=== PATIENT | male | born 1955 | race Caucasian/White ===

== ENCOUNTER 2020-06-17 07:48 | Outpatient (CLI) | payer MEDICARE, OTHER, SELFPAY ==
--- NOTE | ~2020-06-17 | CT_ITS ---
EXAMINATION: CT abdomen pelvis wo con DATE: 06/17/2020 08:12 INDICATION: Renal stones TECHNIQUE: Computed tomography (CT) of the abdomen and pelvis was performed without intravenous contr ast. Automated exposure control and iterative reconstruction technique were employed. Exam dose: 128 5.61 mGy-cm total exam DLP. COMPARISON: 10/03/[address] abdomen pelvis FINDINGS: Emphysematous changes are noted in the lower lung zones. Bilateral lower lung discoid atele ctasis and/or scarring. Normal heart size. No pericardial or pleural effusion. Numerous gallstones are noted. No gallbladder wall thickening or pericholecystic fluid or fat strandi ng. No hepatic, splenic, pancreatic, adrenal space-occupying mass lesion is evident. No bile duct or panc reatic duct dilatation. There is mild chronic nonspecific fat stranding in the upper abdominal mesentery, also present on 09/15. No right renal space-occupying mass lesion or right urinary tract calculus or hydroureteronephrosis. There are several lower pole nonobstructing left renal calculi, the largest measuring up to approxima tely 5 mm dimension. No left ureteral calculus or hydroureteronephrosis. Possible 10 mm left lower po le renal cyst. Evaluation for renal masses is limited on this noncontrast examination. Moderately large sliding hiatal hernia is noted. No evidence of appendicitis. No bowel obstruction, bowel wall thickening, pneumatosis or intraperiton eal free air. There is prostate enlargement and calcification. The urinary bladder is unremarkable. Left inguinal f at-containing hernia. Moderately prominent fat-containing umbilical hernia, measuring up to 2.7 cm depth, 3.1 cm width. Chronic L1 fracture deformity, present on 10/03/2016. IMPRESSION: Cholelithiasis Nonobstructive left nephrolithiasis Possible 10 mm lower pole left renal cyst Moderately large hiatal hernia Prostate enlargement and calcification Left inguinal and umbilical fat-containing hernias Reviewed, dictated and finalized at [facility]. Reviewed, dictated and finalized at [facility].
== END 2020-06-17 07:49 | disposition home or self-care (01) ==
PROVIDERS: PCP Internal Medicine; Visit Provider Nurse Practitioner
DX: N20.0 Calculus of kidney (principal); K80.20 Calculus of gallbladder without cholecystitis without obstruction; K44.9 Diaphragmatic hernia without obstruction or gangrene; N40.0 Benign prostatic hyperplasia without lower urinary tract symptoms; K40.90 Unilateral inguinal hernia, without obstruction or gangrene, not specified as recurrent; K42.9 Umbilical hernia without obstruction or gangrene
CPT/HCPCS: 74176

== ENCOUNTER → 2020-06-24 00:46 | Outpatient (CLI) | payer MEDICARE, OTHER, SELFPAY ==
[2020-06-24 18:53] LABS: SARS-CoV-2 RNA PCR Negative
== END ==
PROVIDERS: PCP Internal Medicine; Visit Provider Internal Medicine Gastroenterology
DX: Z01.812 Encounter for preprocedural laboratory examination (principal); Z20.822 Contact with and (suspected) exposure to COVID-19
CPT/HCPCS: C9803; U0003; U0005

== ENCOUNTER 2020-06-28 02:01 | Day surgery (SDC) | payer MEDICARE, OTHER, SELFPAY ==
[2020-06-15 14:22] VITALS: BMI 36.4
[2020-06-28 09:15] VITALS: BP 135/79; PULSE 69; RESP 18; TEMP 36.6; O2SAT 95; BMI 36.9
[2020-06-28] MEDS: LACTATED RINGERS 1,000 ML 150 ML IV CONT (09:33)
--- NOTE | 2020-06-28 09:51 | WPDANESEPPF ---
Anes - Initial Pre Proc Eval Procedure: Operation Date: 06/28/20 10:30 Proposed Procedures p Screening Colonoscopy - Michael Rodriguez MD Date/Time: 06/28/20 09:51 Surgeon: Michael Rodriguez MD Pre Op Diagnosis: neoplasm Screening Patient Data Age: 65 Gender: M Height: 6 ft Weight: 123.6 kg Last Vital Signs Temp 97.8 F 06/28/20 09:15 Pulse 69 06/28/20 09:15 Resp 18 06/28/20 09:15 BP 135/79 06/28/20 09:15 Pulse Ox 95 06/28/20 09:15 Allergies Allergy/AdvReac Type Severity Reaction Status Date / Time BEANS Allergy Unknown Hives / Uncoded 06/28/20 09:17 Red Face Home Medications Medication Instructions Recorded Confirmed Type ascorbate calcium (vitamin C) 500 500 mg PO DAILY 04/25/20 06/28/20 History mg tablet calcium carbonate 390 mg calcium 390 mg PO TID tablet 04/25/20 06/28/20 History (1,000 mg) tablet cholecalciferol (vitamin D3) 25 1,000 unit PO DAILY cap 04/25/20 06/28/20 History mcg (1,000 unit) capsule sod picosulf 10 mg-magnes 3.5 160 ml PO BID #160 ml 05/22/20 06/28/20 Rx gram-citric 12 gram/160 mL oral solution tamsulosin 0.4 mg capsule 0.4 mg PO DAILY #30 cap 06/16/20 06/28/20 Rx Patient hx anesthesia problems: none Family hx anesthesia problems: none PMFSH Past Medical History Medical History (Updated 06/15/20 @ 13:24 by Mary Lou Maria NP) Elevated blood pressure reading in office without diagnosis of hypertension Kidney stones 2016 Sleep apnea Uses CPAP machine Surgical History Surgical History (Updated 04/25/20 @ 09:07 by Tamika Bowling CMA) History of left knee replacement 02/2017 History of total right knee replacement 06/2016 Family History Family History (Updated 04/25/20 @ 09:07 by Tamika Bowling CMA) Father Heart disease Social History Social History Smoking status: Never smoker Alcohol intake: never Substance use: never Substance use type: does not use Living arrangements: with family Spiritual care concerns: No Anes - Eval Final PreProcedure Day of Procedure 06/28/20 09:51 Patient weight: obese Heart: regular rate and rhythm Lungs: clear to auscultation Airway: Mallampati scale class II Neurological: alert and oriented Last oral intake: >/= 8 hours ASA classification: III Emergent: no Anesthetic plan: proceed Anesthesia type and monitoring: general GIVS and standard monitoring Informed Consent: The patient's anesthetic plan and its attendant risks and benefits were discussed with the patient/family/POA. Questions were solicited and answers provided to the satisfaction of the patient/family/POA.
--- NOTE | 2020-06-28 10:07 | PM.HPGS ---
History of Present Illness History of Present Illness Consent: Risks, benefits, and alternatives have been discussed and questions answered. Patient agrees to proceed with procedure. Chief complaint: neoplasm Screening Narrative: Ramy Alex is a 65 year old male here for colon screening, last one more than 10 years ago. Review of Systems Constitutional: Constitutional: Denies headache(s) and Denies weakness Eyes: Eyes: Denies blurry vision ENT: Reports Normal hearing present, Denies headache(s) and Denies neck pain Cardiovascular: Cardiovascular: Denies chest pain and Denies dyspnea Respiratory: Respiratory: Denies dyspnea Gastrointestinal: Gastrointestinal: Reports no additional gastrointestinal complaints Genitourinary: Genitourinary: Denies dysuria Musculoskeletal: Musculoskeletal: Denies neck pain Integumentary/Breasts: Skin/Breast: Denies dry skin Neurologic: Reports Normal hearing present, Denies headache(s) and Denies weakness Psychiatric: Psychiatric: Denies anxiety Endocrine: Endocrine: Denies change in body appearance Hematologic/Lymphatic: Hematologic/Lymphatic: Denies easy bleeding Allergic/Immunologic: Allergic/Immunologic: Denies urticaria PMFSH Past Medical History Medical History (Updated 06/15/20 @ 13:24 by Mary Lou Maria NP) Elevated blood pressure reading in office without diagnosis of hypertension Kidney stones 2016 Sleep apnea Uses CPAP machine Surgical History Surgical History (Updated 04/25/20 @ 09:07 by Tamika Bowling CMA) History of left knee replacement 02/2017 History of total right knee replacement 06/2016 Family History Family History (Updated 04/25/20 @ 09:07 by Tamika Bowling CMA) Father Heart disease Social History Social History Smoking status: Never smoker Alcohol intake: never Substance use: never Substance use type: does not use Living arrangements: with family Spiritual care concerns: No Meds Home Medications and Allergies Home Medications Medication Instructions Recorded Confirmed Type ascorbate calcium (vitamin C) 500 500 mg PO DAILY 04/25/20 06/28/20 History mg tablet calcium carbonate 390 mg calcium 390 mg PO TID tablet 04/25/20 06/28/20 History (1,000 mg) tablet cholecalciferol (vitamin D3) 25 1,000 unit PO DAILY cap 04/25/20 06/28/20 History mcg (1,000 unit) capsule sod picosulf 10 mg-magnes 3.5 160 ml PO BID #160 ml 05/22/20 06/28/20 Rx gram-citric 12 gram/160 mL oral solution tamsulosin 0.4 mg capsule 0.4 mg PO DAILY #30 cap 06/16/20 06/28/20 Rx Allergies Allergy/AdvReac Type Severity Reaction Status Date / Time BEANS Allergy Unknown Hives / Uncoded 06/28/20 09:17 Red Face Vital Signs Vital Signs - 24 hr 06/28/20 09:15 Temperature 97.8 F Pulse Rate 69 Respiratory Rate 18 Blood Pressure 135/79 Pulse Oximetry 95 Exam Const: General: comfortable and no acute distress HENMT: General nose exam: Normal nares present Eyes: General: appearance normal, both eyes and all related structures Neck: Neck: no JVD Resp: Auscultation: clear to auscultation bilaterally Cardio: Rate: regular rate Rhythm: regular rhythm GI: Inspection: non-distended GI Palp: Yes Soft to palpation Skin: General skin exam: normal color Neuro: General: gait normal Speech: normal speech Extrem: General: normal to inspection Psych: Mental Status: mental status grossly normal Assessment and Plan Assessment and plan (1) Colon cancer screening: Code(s): Z12.11 - Encounter for screening for malignant neoplasm of colon Status: Acute Assessment and Plan: colonoscopy
[2020-06-28 10:35] VITALS: BP 93/60; PULSE 60; RESP 20; O2SAT 93
[2020-06-28 10:45] VITALS: BP 108/59; PULSE 61; RESP 16; O2SAT 97
[2020-06-28 10:55] VITALS: BP 117/71; PULSE 65; RESP 23; O2SAT 97
== END 2020-06-28 11:08 | disposition home or self-care (01) ==
PROVIDERS: PCP Internal Medicine; Visit Provider Internal Medicine Gastroenterology
PROC: 0DJD8ZZ Inspection of Lower Intestinal Tract, Via Natural or Artificial Opening Endoscopic (ICD-10-PCS; CPT 45378; principal; 2020-06-28 10:30)
DX: Z12.11 Encounter for screening for malignant neoplasm of colon (principal); D12.2 Benign neoplasm of ascending colon; D12.3 Benign neoplasm of transverse colon; D12.4 Benign neoplasm of descending colon; K64.8 Other hemorrhoids; G47.30 Sleep apnea, unspecified; E66.9 Obesity, unspecified; Z68.37 Body mass index [BMI] 37.0-37.9, adult
CPT/HCPCS: 45380; 45385; 88305; J2704; J7120

== ENCOUNTER 2021-01-27 23:39 | Emergency (ER) | payer MEDICARE, OTHER, SELFPAY ==
--- NOTE | ~2021-01-27 | CT_ITS ---
EXAMINATION: CT abdomen pelvis wo con DATE: 01/28/2021 00:14 INDICATION: Left flank pain TECHNIQUE: Computed tomography (CT) of the abdomen and pelvis was performed without intravenous contr ast. The dose-length product (DLP) was 1250.86 mGy-cm. Automated exposure control and iterative recon struction technique were employed. COMPARISON: 06/17/2020 FINDINGS: There is a large hiatal hernia. Atelectasis is noted in the visualized lung bases. The hear t size is normal. Stones are present in the nondistended gallbladder. The liver, spleen, pancreas, an d adrenal glands are normal. There is a 5 mm stone at the left ureteropelvic junction which causes mi ld hydronephrosis. The right kidney is unremarkable. No pathologically enlarged abdominal or pelvic l ymph nodes are identified. There is no free intraperitoneal gas or evidence of bowel obstruction. The re is a fat-containing umbilical hernia. A chronic L1 compression fracture is noted. There is moderat e lumbar spondylosis at L5-S1. IMPRESSION: 1. 5 mm stone at the left ureteropelvic junction causing mild hydronephrosis. 2. Cholelithiasis without evidence of cholecystitis. Reviewed, dictated and finalized at [facility]. [employer]
[2021-01-27 23:41] VITALS: BP 138/92; PULSE 63; RESP 18; TEMP 36.4; O2SAT 97
[2021-01-28 00:01] LABS: Basophils Absolute Auto 0.1 K/mm3 (0.0-0.1); Eosinophils Absolute Auto 0.4 K/mm3 (0-0.3); Eosinophils Percent Auto 4.2 % (0-4.4); Hematocrit 44.3 % (42.0-52.0); Hemoglobin 15.4 g/dL (14.0-18.0); Immature Granulocyte Absolute 0.01 K/mm3 (0.00-0.031); Immature Granulocyte Percent A 0.1 % (0-0.5); Lymphocytes Absolute Auto 2.79 K/mm3 (0.9-3.2); Mean Corpuscular HGB Conc 34.8 g/dl (32-36); Mean Corpuscular Hemoglobin 30.3 pg (26-34); Mean Platelet Volume 10.1 fl (7.4-10.4); Monocytes Absolute Auto 0.9 K/mm3 (0.1-0.6); Monocytes Percent Auto 9.9 % (2.6-8.5); Neutrophils Absolute Auto 4.6 K/mm3 (1.3-6.7); Neutrophils Percent Auto 52.8 % (45.5-73.1); Platelet Count Result 224 k/mm3 (150-375); Red Blood Count 5.09 M/mm3 (4.6-6.20); Red Cell Distribution Width 13.2 % (11.5-14.5); White Blood Count 8.7 K/mm3 (4.5-10.0)
--- NOTE | 2021-01-28 00:07 | PC.NURSE ---
Pt to CT scan via stretcher at this time.
[2021-01-28 00:17] LABS: Alanine Aminotransferase 17 U/L (4-50); Albumin Level 4.3 g/dL (3.5-5.1); Alkaline Phosphatase 45 U/L (38-126); Anion Gap 9 mmol/L (8-16); Aspartate Amino Transferase 24 U/L (17-59); Bilirubin,Total 0.5 mg/dL (0.2-1.3); Blood Urea Nitrogen 21 mg/dL (9-20); Calcium 9.3 mg/dL (8.4-10.2); Carbon Dioxide 26 mmol/L (22-30); Chloride 107 mmol/L (98-107); Estimated CRCL calculation 106 ml/min; Estimated Glomerular Filt Rate > 60; Glucose 95 mg/dL (65-110); Lipase 31 U/L (23-300); Potassium 3.6 mmol/L (3.4-5.0); Sodium 142 mmol/L (137-145)
--- NOTE | 2021-01-28 00:18 | ED.GENADULT ---
HPI - General Adult General Chief complaint: Abdominal Pain Stated complaint: LLQ pain - possible kidney stone Time Seen by Provider: 01/27/21 23:49 History of Present Illness HPI narrative: Patient is a 66-year-old gentleman who presents the emergency department with chief complaint of left flank pain. Patient reports that he has history of kidney stones and started having a sharp pain in the left flank and left side today patient states it feels similar to when he said he stones before in the past patient denies nausea vomiting denies fever denies diarrhea denies localizing abdominal pain. Patient states that the abdomen is not worse with movement reports that at have similar to when he had stones in the past. Patient reports he is required a stent and is required lithotripsy with a previous stone. Related Data Home Medications Medication Instructions Recorded Confirmed ascorbate calcium (vitamin C) 500 500 mg PO DAILY 04/25/20 06/28/20 mg tablet calcium carbonate 390 mg calcium 390 mg PO TID tablet 04/25/20 06/28/20 (1,000 mg) tablet cholecalciferol (vitamin D3) 25 1,000 unit PO DAILY cap 04/25/20 06/28/20 mcg (1,000 unit) capsule Allergies Allergy/AdvReac Type Severity Reaction Status Date / Time BEANS Allergy Unknown Hives / Uncoded 06/28/20 09:17 Red Face Review of Systems Review of Systems: A 10 system review of systems was completed on the patient and is negative except for what is stated in the HPI. Nursing and ancillary documentation was reviewed. [facility] Past Medical History Medical History Elevated blood pressure reading in office without diagnosis of hypertension Kidney stones 2016 Sleep apnea Uses CPAP machine Surgical History Surgical History History of left knee replacement 02/2017 History of total right knee replacement 06/2016 Family History Family History Father Heart disease Social History Social History Smoking status: Never smoker Alcohol intake: never Substance use: never Substance use type: does not use Spiritual care concerns: No Exam Narrative: GENERAL: Well-appearing, well-nourished, and in no acute distress. HEAD: Normocephalic, atraumatic. EYES: PERRLA and EOMI. ENT: Nares clear, no rhinorrhea or epistaxis. Mucous membranes moist. NECK: Supple. CHEST: Clear to auscultation. No respiratory distress. HEART: Regular rate and rhythm. No murmur heard. Normal peripheral pulses. ABDOMEN: Soft, nontender, nondistended, normal active bowel sounds. EXTREMITIES: Normal range of motion. No edema. SKIN: Warm, dry, no rash. NEURO: No focal deficits. Alert and oriented x3. PSYCH: Normal mood and affect. Course Vital Signs Vital signs: Vital Signs Temperature 36.4 C 01/27/21 23:41 Pulse Rate 63 01/27/21 23:41 Respiratory Rate 18 01/27/21 23:41 Blood Pressure 138/92 H 01/27/21 23:41 Pulse Oximetry 97 01/27/21 23:41 Temperature 36.4 C 01/27/21 23:41 Pulse Rate 69 01/28/21 00:35 Respiratory Rate 15 01/28/21 00:35 Blood Pressure 139/91 H 01/28/21 00:35 Pulse Oximetry 97 01/28/21 00:35 Medical Decision Making Vital Signs Vital Signs: Vital Signs Temperature 36.4 C 01/27/21 23:41 Pulse Rate 63 01/27/21 23:41 Respiratory Rate 18 01/27/21 23:41 Blood Pressure 138/92 H 01/27/21 23:41 Pulse Oximetry 97 01/27/21 23:41 Temperature 36.4 C 01/27/21 23:41 Pulse Rate 69 01/28/21 00:35 Respiratory Rate 15 01/28/21 00:35 Blood Pressure 139/91 H 01/28/21 00:35 Pulse Oximetry 97 01/28/21 00:35 Lab Data Result diagrams: 01/27/21 23:55 01/27/21 23:55 Labs: Lab Results 01/27/21 01/27/21 01/28/21 Range/Units
[2021-01-28 00:24] LABS: Add Urine Microscopic? YES; Appearance Urine Cloudy (Clear); Bacteria Urine Trace /hpf; Bilirubin Urine Negative (Negative); Blood Urine 3+ (Negative); Color Urine Amber (Yellow); Glucose Urine UA Negative (Negative); Ketones Urine Negative (Negative); Leukocyte Esterase Ur Negative LEU/UL (Negative); Mucus Urine Few /lpf; Nitrate Urine Negative (Negative); Protein Urine 1+ mg/dL (Negative); RBC Urine >75 /hpf (0-2); Specific Grav Ur 1.021 (1.001-1.035); Urobilinogen Urine Negative mg/dL (<2.0)
[2021-01-28 00:35] VITALS: BP 139/91; PULSE 69; RESP 15; O2SAT 97
[2021-01-28] MEDS: HYDROcodone/acetaminophen (*CRX) 5-325 MG TABLET 1 TAB PO (01:35)
[2021-01-28] MEDS: TAMSULOSIN HCL 0.4 MG CAPSULE PO (01:35)
[2021-01-28] MEDS: CEPHALEXIN 500 MG CAPSULE PO (01:35)
[2021-01-28 01:41] VITALS: BP 133/89; PULSE 69; RESP 15; O2SAT 100
== END 2021-01-28 01:42 | disposition home or self-care (01) ==
PROVIDERS: Emergency Provider Emergency Medicine
DX: N20.0 Calculus of kidney (principal); G47.30 Sleep apnea, unspecified; Z87.442 Personal history of urinary calculi; Z99.89 Dependence on other enabling machines and devices
CPT/HCPCS: 36415; 74176; 80053; 81001; 83690; 85025; 87086; 99284; A9270

== ENCOUNTER → 2023-01-06 09:02 | Outpatient (CLI) | payer MEDICARE, OTHER, SELFPAY ==
--- NOTE | ~2023-01-06 | CT_ITS ---
EXAMINATION: CT abdomen pelvis wo con DATE: 01/06/2023 09:17 INDICATION: Abdominal pain TECHNIQUE: Computed tomography (CT) of the abdomen and pelvis was performed without intravenous contr ast. The dose-length product was 1037.30 mGy-cm. Automated exposure control and iterative reconstruct ion technique were employed. COMPARISON: CT dated 01/28/2021 FINDINGS: Large hiatal hernia. There is emphysema. No pneumothorax. There is a fat-containing umbilic al hernia. There are gallstones. There is mesenteric edema with enlarged mesenteric lymph nodes, susp icious for mesenteric adenitis. Nonobstructive bowel gas pattern. Colonic diverticulosis without evid ence for diverticulitis. The liver, spleen, adrenal glands and kidneys are unremarkable. There is geographic hypodensity of th e pancreatic head and neck which is ill-defined. No free air or free fluid. Chronic superior endplate compression fracture of L1. Severe lower thoracic and lumbar spondylosis. IMPRESSION: 1. Mesenteric edema with enlarged mesenteric lymph nodes, suspicious for sclerosing mesenteritis. 2: Cholelithiasis. 3: Geographic hypodensity of the pancreatic head and neck. Correlation with CT or MRI without and wit h contrast recommended. Reviewed, dictated and finalized at [facility]. IMPRESSION: 1. Mesenteric edema with enlarged mesenteric lymph nodes, suspicious for sclero sing mesenteritis. 2: Cholelithiasis. 3: Geographic hypodensity of the pancreatic head and neck. Correlation with CT or MRI without and with contrast recommended.
== END ==
DX: R10.9 Unspecified abdominal pain (principal); K80.20 Calculus of gallbladder without cholecystitis without obstruction
CPT/HCPCS: 74176

== ENCOUNTER 2023-05-01 08:54 | Outpatient (CLI) | payer MEDICARE, OTHER, SELFPAY ==
--- NOTE | ~2023-05-01 | CT_ITS ---
CT of the Abdomen and Pelvis: Indication: Abdominal pain Technique: 2.5 mm axial scans were obtained through the abdomen and pelvis following intravenous adm inistration of 100 cc of Omnipaque 350. Dose reduction technique was used on this scan by utilizing a utomated exposure control and iterative reconstruction technique. The dose-length product (DLP) was 1 529.78 mGy-cm. COMPARISON: 01/06/2023 Findings: Scans through the lung bases demonstrate cystic/emphysematous change in the right middle l obe. Moderate to large hiatal hernia present. The liver, spleen, pancreas, adrenals and kidneys are within normal limits. Gallstones are present. N o evidence of aortic aneurysm. Small shotty mesenteric lymph nodes are present, with minimal haziness in the central mesentery. No bowel obstruction or bowel wall thickening. There is no evidence to suggest acute appendicitis. Sm all fat-containing umbilical hernia noted. Images through the pelvis were performed. Urinary bladder unremarkable. No pelvic mass seen. No ascit es. Stable chronic compression deformity of L1. Impression: Large large hiatal hernia. Cholelithiasis. 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 Small fat-containing umbilical hernia. Reviewed, dictated and finalized at [facility]. [employer] Impression: Large large hiatal hernia. Cholelithiasis. 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 Small fat-containing umbilical hernia.
[2023-05-01 09:29] LABS: Estimated Glomerular Filt Rate > 60
== END 2023-05-01 08:55 | disposition home or self-care (01) ==
LOC: ANHIMG 08:57
DX: K44.9 Diaphragmatic hernia without obstruction or gangrene (principal); K80.20 Calculus of gallbladder without cholecystitis without obstruction; K40.90 Unilateral inguinal hernia, without obstruction or gangrene, not specified as recurrent
CPT/HCPCS: 74177; Q9967

== ENCOUNTER 2023-08-25 18:39 | Emergency (ER) | payer MEDICARE, SELFPAY ==
--- NOTE | ~2023-08-25 | XR_ITS ---
EXAM: XR hand LT min 3V DATE: 08/25/2023 20:17 HISTORY: 1st digit CUT WITH AXE, BANDAGE TO SAME LOC . COMPARISON: None available. FINDINGS: Normal mineralization. No fracture or dislocation. No lytic or blastic lesion. Mild scatte red degenerative changes. Bandage material over the thumb. No erosion or periosteal change. Soft tiss ues within normal limits. IMPRESSION: No acute osseous finding in the left hand. Reviewed, dictated and finalized at location [facility].
[2023-08-25 18:41] VITALS: BP 148/92; PULSE 72; RESP 18; TEMP 36.4; O2SAT 97
--- NOTE | 2023-08-25 21:55 | ED.WOUNDLAC ---
HPI - Wound/Laceration General Chief Complaint: Wound/Laceration Stated Complaint: left thumb lac Time Seen by Provider: 08/25/23 19:55 History of Present Illness HPI narrative: 68-year-old male presents to the emergency department for laceration to his left thumb that occurred prior to arrival. Patient states he was cutting wood with an Axe when He accidentally cut his left thumb. He is not on any blood thinners. Bleeding controlled. Last Tdap unknown. Related Data Home Medications Medication Instructions Recorded Confirmed ascorbate calcium (vitamin C) 500 500 mg PO DAILY 04/25/20 06/28/20 mg tablet calcium carbonate (Coral Calcium) 390 mg PO TID 04/25/20 06/28/20 cholecalciferol (vitamin D3) 25 1,000 unit PO DAILY 04/25/20 06/28/20 mcg (1,000 unit) capsule Allergies Allergy/AdvReac Type Severity Reaction Status Date / Time BEANS Allergy Unknown Hives / Uncoded 06/28/20 09:17 Red Face Review of Systems Review of Systems: CONSTITUTIONAL: Denies fever, chills, or sweats. EYES: Denies visual changes, redness, or discharge. ENT: Denies rhinorrhea, congestion, sore throat, or otalgia. CARDIOVASCULAR: Denies chest pain, palpitations, or edema. RESPIRATORY: Denies cough or dyspnea. GASTROINTESTINAL: Denies abdominal pain, nausea, vomiting, or diarrhea. GENITOURINARY: Denies dysuria or hematuria. SKIN: see HPI MUSCULOSKELETAL: Denies back pain, joint pain, or myalgia. NEUROLOGIC: Denies headache, numbness, or weakness. PSYCHIATRIC: Denies anxiety or depression. [facility] Past Medical History Medical History Elevated blood pressure reading in office without diagnosis of hypertension Kidney stones 2016 Sleep apnea Uses CPAP machine Surgical History Surgical History History of left knee replacement 02/2017 History of total right knee replacement 06/2016 Family History Family History Father Heart disease Social History Social History Smoking status: Never smoker Alcohol intake: never Substance use: never Substance use type: does not use Living arrangements: with family Spiritual care concerns: No Exam Narrative: GENERAL: Well-appearing, well-nourished, and in no acute distress. HEAD: Normocephalic, atraumatic. NECK: Supple. CHEST: Clear to auscultation. No respiratory distress. HEART: Regular rate and rhythm. No murmur heard. Normal peripheral pulses. EXTREMITIES: Normal range of motion. No edema. SKIN: less than 1 cm superficial laceration to the radial aspect of the left distal phalanx of the 1st digit. Bleeding controlled. No deep structures or foreign bodies visualized. Patient has full range of motion of thumb. Cap refill less than 2. Sensation intact. NEURO: No focal deficits. Alert and oriented x3 Course Vital Signs Vital signs: Vital Signs Temperature 97.6 F 08/25/23 18:41 Pulse Rate 72 08/25/23 18:41 Respiratory Rate 18 08/25/23 18:41 Blood Pressure 148/92 H 08/25/23 18:41 Pulse Oximetry 97 08/25/23 18:41 Oxygen Delivery Room Air 08/25/23 18:41 Temperature 97.6 F 08/25/23 18:41 Pulse Rate 74 08/25/23 22:13 Respiratory Rate 16 08/25/23 22:13 Blood Pressure 142/75 H 08/25/23 22:13 Pulse Oximetry 99 08/25/23 22:13 Oxygen Delivery Room Air 08/25/23 18:41 Procedures Laceration Laceration 1: Date: 08/25/23 Time: 21:56 Site: upper extremity Side (If applicable): left Size (cm): 0.5 Description: linear Depth: simple, single layer Local Anesthetic: lidocaine 1% Amount of anesthesia used (mL): 0.25 Pre-repair: wound explored, irrigated and irrigated extensively ====== Skin Level ====== Skin layer
[2023-08-25] MEDS: LIDO 1%/EPINEPHRINE 1:100,000 20 ML VIAL 10 ML INFILTRATE (22:06)
[2023-08-25] MEDS: TETANUS,DIPHTHERIA,AC PERTUSSIS ADULT (0.5 ML) BOOSTRIX IM (22:06)
[2023-08-25 22:13] VITALS: BP 142/75; PULSE 74; RESP 16; O2SAT 99
== END 2023-08-25 22:14 | disposition home or self-care (01) ==
PROVIDERS: Emergency Provider Physician Assistant
DX: S61.012A Laceration without foreign body of left thumb without damage to nail, initial encounter (principal); Z23 Encounter for immunization; G47.30 Sleep apnea, unspecified; Z96.653 Presence of artificial knee joint, bilateral; Z87.442 Personal history of urinary calculi; W27.0XXA Contact with workbench tool, initial encounter
CPT/HCPCS: 12001; 73130; 90471; 90715; 99283

== ENCOUNTER 2023-09-03 07:35 | Outpatient (CLI) | payer MEDICARE, SELFPAY ==
--- NOTE | ~2023-09-03 | CT_ITS ---
CT abdomen pelvis w con Ordering provider: Margarito Atif History: 68 years Male with . MESENTERIC PANNICULITIS . Comparison: May 01, 2023 Technique: CT abdomen and pelvis with IV and without oral contrast. Radiation reduction technique uti lized. DLP is 1377.68 mGy. Findings: VISUALIZED LOWER CHEST: Atelectatic and emphysematous lung changes are seen in the lower lobes. UPPER ABDOMINAL ORGANS: Liver: Normal. Gallbladder: Cholelithiasis. Spleen: Normal. Stomach/duodenum: Sliding hiatus hernia. Pancreas: Normal. Adrenals: Normal. Kidneys: Small cyst in the left kidney lower pole. PELVIC ORGANS: Tiny calcification the left side of the urinary bladder which may be a stone. The blad carolyn is normal. BOWEL AND MESENTERY: Colon: No evidence of diverticulitis.. No evidence of appendicitis. Small Bowel: Normal. No obstruction. Peritoneum/mesentery: No free air or free fluid. No mesenteric lymphadenopathy. Panniculitis is seen in the mid abdomen unchanged from previous examination. RETROPERITONEUM: Mild atheromatous disease of the abdominal aorta. No retroperitoneal lymphadenopat hy. MUSCULOSKELETAL: Superficial soft tissues: Small fat-containing umbilical hernia. Small fat-containing left inguinal h ernia. Otherwise, The superficial soft tissues are normal. Bones: Age appropriate degenerative changes of the spine. Compression fracture of L1 is seen most lik jeremiah chronic in nature. Multilevel facet joint disease. IMPRESSION: 1. Cholelithiasis with no evidence of cholecystitis. 2. Sliding hiatus hernia with the majority of the stomach in the chest. 3. Panniculitis in the mid abdomen unchanged from previous examination. 4. Tiny Stone in the left side of the urinary bladder. Reviewed, dictated and finalized at location [facility].
[2023-09-03 08:03] LABS: Estimated Glomerular Filt Rate > 60
== END 2023-09-03 07:36 | disposition home or self-care (01) ==
LOC: ANHIMG 07:35
DX: K65.4 Sclerosing mesenteritis (principal); K80.20 Calculus of gallbladder without cholecystitis without obstruction; K44.9 Diaphragmatic hernia without obstruction or gangrene
CPT/HCPCS: 74177; Q9967

== ENCOUNTER 2023-12-10 12:40 | Outpatient (CLI) | payer MEDICARE, SELFPAY ==
--- NOTE | ~2023-12-10 | MR_ITS ---
EXAMINATION: MR brain/brain stem wo/w con DATE: 12/10/2023 13:28 INDICATION: Bilateral hearing loss TECHNIQUE: Magnetic resonance imaging (MRI) of the brain and brainstem was performed without and with 20 mL Multihance intravenous contrast. Sequences included sagittal and axial T1-weighted SE, axial d iffusion-weighted FS SE, axial T2*-weighted GRE, axial T2-weighted FLAIR, and axial T2-weighted FSE. Postcontrast axial and coronal T1-weighted SE was obtained. Apparent diffusion coefficient (ADC) maps were created. COMPARISON: None. FINDINGS: There are no areas of restricted diffusion to suggest acute infarction. No intracranial hemorrhage or abnormal intracranial mass lesion. Minimal scattered foci of nonspecific increased T2-weighted signa l intensity in the cerebral white matter, predominantly involving the deep and periventricular white matter which is within normal limits for age. There are no intraparenchymal signal abnormalities seen on the other pulse sequences. The ventricles are symmetric and normal in size. There are no abnormal extra-axial fluid collections. Flow voids are seen in the cerebral arteries on the T2-weighted seque nces consistent with their expected patency. Moderate mucosal thickening in the inferior right maxill tony sinus with mild mucosal thickening the bilateral ethmoid sinuses. Visualized orbits and soft tiss ues are unremarkable. No evident fluid or soft tissue densities in the bilateral mastoid air cells ar e middle ear cavities. There are no areas of abnormal enhancement on the post contrast images. IMPRESSION: 1. Normal for age brain with no acute intracranial process or abnormally enhancing lesions. Reviewed, dictated and finalized at location A. IMPRESSION: 1. Normal for age brain with no acute intracranial process or abnormally enhanc ing lesions.
== END 2023-12-10 12:41 | disposition home or self-care (01) ==
LOC: MICIMG 12:41
PROVIDERS: Visit Provider Otolaryngology
DX: H90.3 Sensorineural hearing loss, bilateral (principal); R51.9 Headache, unspecified
CPT/HCPCS: 70553; A9577